=== PATIENT | female | born 1955 | race American Indian/Alaskan Native ===

== ENCOUNTER 2018-05-24 11:18 | Outpatient (CLI) | payer MEDICARE ==
--- NOTE | 2018-05-24 16:25 | Mammography Report ---
BONE DEXA:05/24/18 11:18:00 CLINICAL: Postmenopausal. No comparison. TECHNIQUE: Two site bone DEXA performed on an Hologic scanner. FINDINGS: The average BMD of the right forearm is 0.459g/cm squared with a T-score of -2.1 and a Z-score of -0.4. The average BMD of the right hip is 1.040g/cm squared with a T-score of +0.1 and a Z-score of +1.0. IMPRESSION: 1. WHO classification: Osteopenia with increased fracture risk based on right forearm measurements. 2. WHO classification: Normal with average fracture risk based on right hip measurements. RECOMMENDATION: Clinical correlation and routine screening. DEFINITIONS: BMD = Bone Mineral Density T-score = BMD related to mean peak bone mass of young adult (mean expressed in Standard Deviation) Z-score = Age matched BMD expressed in SD World Health Organization (WHO) Diagnostic Criteria Normal T-score > -1 SD Osteopenia T-score between -1 and -2.4 SD Osteoporosis T-score -2.5 SD or below NOTE: BMD is not the only risk factor for fracture. One should also consider factors such as the patient's age, risk of falling, previous osteoporotic fracture, family history of osteoporotic fractures, current smoker, and low body weight. Z-scores are not calculated if >80 years of age.
== END 2018-05-24 11:19 | disposition home or self-care (01) ==
LOC: SPVWC 11:18
PROVIDERS: ATTEND Nurse Practitioner Gerontology
DX: Z13.820 Encounter for screening for osteoporosis (principal); M85.88 Other specified disorders of bone density and structure, other site; Z78.0 Asymptomatic menopausal state
CPT/HCPCS: 77080

== ENCOUNTER 2018-12-10 11:22 | Emergency (ER) | payer MEDICARE ==
--- NOTE | 2018-12-10 11:59 | Event Note ---
ED Screening Note ED Screening Note: 63 YO FEMALE WITH COUGH, COLD CONGESTION REPORTS OF FEVER AT HOME HR ELEVATED BUT PT COUGHING AT TIME- RECHECK NO FEVER AMBULATORY SMOKER PMH HTH AND HPLD This initial assessment/diagnostic orders/clinical plan/treatment(s) is/are subject to change based on patients health status, clinical progression and re- assessment by fellow clinical providers in the ED. Further treatment and workup at subsequent clinical providers discretion. Patient/guardian urged not to elope from the ED as their condition may be serious if not clinically assessed and managed. Initial orders include: CBC BMP XRAY
[2018-12-10] MEDS ORDERED: PROVENTIL IH ONE (12:10)
[2018-12-10 12:40] LABS: Hematocrit 42.3 % (30.3-42.9); Hemoglobin 14.6 gm/dl (10.1-14.3); Mean Corpuscular HGB Conc 35 % (30-34); Mean Corpuscular Volume 93 fl (79-97); Platelet Count 240 K/mm3 (140-440); Red Blood Count 4.57 M/mm3 (3.65-5.03); Red Cell Distribution Width 14.7 % (13.2-15.2)
--- NOTE | 2018-12-10 12:43 | XRay Report ---
CHEST 2 VIEWS INDICATION / CLINICAL INFORMATION: COUGH. COMPARISON: None available. FINDINGS: SUPPORT DEVICES: None. HEART / MEDIASTINUM: No significant abnormality. LUNGS / PLEURA: No significant pulmonary or pleural abnormality. No pneumothorax. ADDITIONAL FINDINGS: No significant additional findings. IMPRESSION: 1. No acute findings. Signer Name: Magdaleno Bautista MD Signed: 12/10/2018 12:39 PM Workstation Name: [id number]
[2018-12-10 13:01] LABS: BUN/Creatinine Ratio 15; Blood Urea Nitrogen 9 mg/dL (7-17); Calcium 9.7 mg/dL (8.4-10.2); Hemolysis Index 2
--- NOTE | 2018-12-10 14:20 | Emergency Department Report ---
HPI - General Chief Complaint: Upper Respiratory Infection Time Seen by Provider: 12/10/18 11:57 ED Past Medical Hx - Past Medical History Previous Medical History?: Yes Hx Hypertension: Yes Additional medical history: HIGH CHOLESTROL - Surgical History Additional Surgical History: BACK SURGERY - Social History Smoking Status: Current Some Day Smoker Substance Use Type: None - Medications Home Medications: Home Medications Medication Instructions Recorded Confirmed Last Taken Type Azithromycin [Zithromax Z-MANJULA] 0 mg PO DAILY #6 tab 12/10/18 Unknown Rx Benzonatate [Tessalon Perles] 100 mg PO Q8HR #30 capsule 12/10/18 Unknown Rx Ipratropium/Albuter (Nf) 2 puff IH QID #1 inha 12/10/18 Unknown Rx [Combivent (Nf)] Prednisone [predniSONE 10 mg 10 mg PO .TAPER #1 tab.ds.pk 12/10/18 Unknown Rx (6-Day Pack, 21 Tabs)] traMADol [Ultram] 50 mg PO Q6HR PRN #10 tablet 12/10/18 Unknown Rx ED Review of Systems ROS: Stated complaint: BAD COUGH/FEVER Other details as noted in HPI Physical Exam - Physical Exam Vital Signs: Vital Signs 12/10/18 11:54 Temperature 98.9 F Pulse Rate 120 H Respiratory 16 Rate Blood Pressure 155/73 O2 Sat by Pulse 98 Oximetry ED Course Vital Signs 12/10/18 11:54 Temperature 98.9 F Pulse Rate 120 H Respiratory 16 Rate Blood Pressure 155/73 O2 Sat by Pulse 98 Oximetry - Reevaluation(s) Reevaluation #1: 12/10/18 14:18 Patient slightly tachycardic after beta agonist nebulizer. Patient states she feels improved after the nebulizer and is currently asymptomatic ED Medical Decision Making - Lab Data Result diagrams: 12/10/18 12:25 12/10/18 12:25 Laboratory Tests 12/10/18 12/10/18 12:25 12:25 WBC 9.9 RBC 4.57 Hgb 14.6 H Hct 42.3 MCV 93 MCH 32 MCHC 35 H RDW 14.7 Plt Count 240 Sodium 143 Potassium 3.9 Chloride 103.3 Carbon Dioxide 26 Anion Gap 18 BUN 9 Creatinine 0.6 L Estimated GFR > 60 BUN/Creatinine Ratio 15 Glucose 111 H Calcium 9.7 - Radiology Data Radiology results: report reviewed (chest x-ray), image reviewed (chest x-ray) interpreted by me: Chest x-ray-no focal infiltrates, no pneumothorax [facility] [address] [place] [address] XRay Report Signed Patient: BRYSON SAM MR#: [id number] : 1955 Acct:[id number] Age/Sex: 63 / F ADM Date: 12/10/18 Loc: ED Attending Dr: Ordering Physician: MARIANA GARCIA Date of Service: 12/10/18 Procedure(s): XR chest routine 2V Accession Number(s): [id number] cc: MARIANA AGRCIA Fluoro Time In Minutes: CHEST 2 VIEWS INDICATION / CLINICAL INFORMATION: COUGH. COMPARISON: None available. FINDINGS: SUPPORT DEVICES: None. HEART / MEDIASTINUM: No significant abnormality. LUNGS / PLEURA: No significant pulmonary or pleural abnormality. No pneumothorax. ADDITIONAL FINDINGS: No significant additional findings. IMPRESSION: 1. No acute findings. Signer Name: Magdaleno Bautista MD Signed: 12/10/2018 12:39 PM Workstation Name: [id number] Transcribed By: ALIRIO Dictated By: Magdaleno Bautista MD Electronically Authenticated By: Magdaleno Bautista MD Signed Date/Time: 12/10/18 1239 DD/ 1238 TD/TT: - Differential Diagnosis pneumonia, bronchitis, asthma exacerbation Critical care attestation.: If time is entered above; I have spent that time in minutes in the direct care of this critically ill patient, excluding procedure time. ED Disposition Clinical Impression: Acute bronchitis, Asthma exacerbation Disposition: DC-01 TO HOME OR SELFCARE Is pt being admited?: No Does the pt Need Aspirin: No Condition: Stable Instructions: Acute Bronchitis (ED) Prescriptions: Ipratropium/Albuter (Nf) [Combivent (Nf)] 2 puff IH QID #1 inha Prednisone [predniSONE 10 mg (6-Day Pack, 21 Tabs)] 10 mg PO .TAPER #1 tab.ds.pk Benzonatate [Tessalon Perles] 100 mg PO Q8HR #30 capsule traMADol [Ultram] 50 mg PO Q6HR PRN #10 tablet PRN Reason: Pain Azithromycin [Zithromax Z-MANJULA] 0 mg PO DAILY #6 tab Referrals: PRIMARY CARE, [Primary Care Provider] - 3-5 Days Time of Disposition: 14:20
[2018-12-10 14:35] VITALS: BP 154/79
== END 2018-12-10 14:35 | disposition home or self-care (01) ==
LOC: ED 11:22
DX: J40 Bronchitis, not specified as acute or chronic (principal); J45.21 Mild intermittent asthma with (acute) exacerbation; E78.00 Pure hypercholesterolemia, unspecified; I10 Essential (primary) hypertension; F17.200 Nicotine dependence, unspecified, uncomplicated; Z79.899 Other long term (current) drug therapy
CPT/HCPCS: 36415; 71046; 80048; 85027; 94640; 94644